=== PATIENT | female | born 1995 | race Hispanic/Latino ===

== ENCOUNTER 2024-01-31 15:40 | Emergency (ER) | payer BC, OTHER ==
[~2024-01-31] VITALS: Ht 149.9 cm; Wt 56.2 kg
[~2024-01-31 15:40] MED LIST: CEPH500B PO; HC0.215O TP
[2024-01-31 16:28] LABS: APPEARANCE,URINE CLEAR (CLEAR); BILIRUBIN,URINE NEGATIVE (NEGATIVE); COLOR,URINE YELLOW (YELLOW); GLUCOSE, URINE (UA) NEGATIVE (NEGATIVE); KETONES,URINE NEGATIVE (NEGATIVE); LEUKOCYTE ESTERASE ,URINE NEGATIVE Leu/uL (NEGATIVE); NITRATE,URINE NEGATIVE (NEGATIVE); OCCULT BLOOD,URINE NEGATIVE (NEGATIVE); PROTEIN,URINE NEGATIVE (NEGATIVE); UROBILINOGEN,URINE 0.2 mg/dL (0.2-1.0)
[2024-01-31 16:30] LABS: HCG,QUALITATIVE URINE NEGATIVE (NEGATIVE)
[2024-01-31] MEDS ORDERED: DiphenhydrAMINE HCL 50 MG/ML VIAL IV ONE (16:30)
[2024-01-31 16:31] LABS: ADD UA MICROSCOPIC NO
[2024-01-31 16:37] LABS: BASOPHILS # (AUTO) 0.04 K/uL (0.00-0.20); BASOPHILS % (AUTO) 0.6 % (0.0-5.0); EOSINOPHILS # (AUTO) 0.14 K/uL (0.00-0.70); HEMATOCRIT 40.2 % (36-48); IMMATURE GRANULOCYTE ABSOLUTE 0.03 K/uL (0-1); LYMPHOCYTES % (AUTO) 29.3 % (21.0-51.0); MEAN CORPUSCULAR HEMOGLOBIN 24.5 pg (27.0-33.0); MEAN CORPUSCULAR HGB CONC 32.1 g/dL (32.0-36.0); MEAN CORPUSCULAR VOLUME 76.3 fL (79-99); MONOCYTES # (AUTO) 0.6 K/uL (0.1-1.0); MONOCYTES % (AUTO) 7.9 % (3.0-13.0); NEUTROPHILS # (AUTO) 4.2 K/uL (1.8-7.7); NEUTROPHILS % (AUTO) 59.8 % (40.0-77.0); PLATELET COUNT (AUTO) 274 K/uL (130-400); RED BLOOD CELL COUNT(AUTO) 5.27 MIL/uL (4.00-5.50); RED CELL DISTRIBUTION WIDTH 13.9 % (11.0-15.5)
[2024-01-31] MEDS: DiphenhydrAMINE HCL 50 MG/ML VIAL IV ONE (16:41)
[2024-01-31] MEDS: METOCLOPRAMIDE 10 MG/2 ML VIAL IVP ONE (16:41)
[2024-01-31] MEDS: KETOROLAC 15MG/ML VIAL (15MG/ML) IV ONE (16:41)
[2024-01-31 16:48] LABS: CREATININE 0.6 mg/dL (0.5-1.0); POTASSIUM 3.8 mmol/L (3.5-5.1)
[2024-01-31 16:53] LABS: ALBUMIN 3.4 g/dL (3.5-5.0); BILIRUBIN,TOTAL 0.2 mg/dL (0.2-1.0); TOTAL PROTEIN, SERUM 7.4 g/dL (6.0-8.3)
[2024-01-31 18:54] VITALS: BP 100/59; PULSE 80; RESP 16; O2SAT 97
[2024-01-31] MEDS ORDERED: IBUP-2070 PO (18:58)
== END 2024-01-31 19:16 | disposition home or self-care (01) ==
LOC: EDH 15:40
DX: G43.909 Migraine, unspecified, not intractable, without status migrainosus (principal); B34.9 Viral infection, unspecified; J06.9 Acute upper respiratory infection, unspecified; R20.2 Paresthesia of skin; Z79.899 Other long term (current) drug therapy; Z90.89 Acquired absence of other organs
CPT/HCPCS: 99285; 96374; 70450; 96375; 80053; 85025; 87880; 81003; 81025; 36415; J1200; J2765; J1885